=== PATIENT | male | born 1980 | race Caucasian/White ===

== ENCOUNTER 2018-06-21 03:36 | Emergency (ER) | payer BC ==
[~2018-06-21] VITALS: Ht 185.4 cm; Wt 97.5 kg
[2018-06-21] MEDS ORDERED: Xanax2 MG PO (03:58)
[2018-06-21] MEDS ORDERED: DESV50 PO (03:59)
[2018-06-21] MEDS ORDERED: DOUBLE ANTIBI28.4 GM TOP (04:12)
== END 2018-06-21 04:28 | disposition home or self-care (01) ==
LOC: ER 03:36
DX: T23.212A Burn of second degree of left thumb (nail), initial encounter (principal); T31.0 Burns involving less than 10% of body surface; F10.129 Alcohol abuse with intoxication, unspecified; X15.0XXA Contact with hot stove (kitchen), initial encounter
CPT/HCPCS: 16020; 90471; 90714; 99283-25; A9270-GY